=== PATIENT | female | born 1970 | race Asian ===

== ENCOUNTER 2019-06-15 11:50 | Emergency (ER) | payer BC, SELFPAY ==
[2019-06-15 11:58] VITALS: BMI 18.3
--- NOTE | 2019-06-15 12:08 | DI.RAD.S_ITS ---
PROCEDURE: XR SHOULDER RT MIN 2V INDICATIONS: pain TECHNIQUE: 3 views of the shoulder were acquired. COMPARISON: None. FINDINGS: Bones: No fractures or dislocations. No suspicious bony lesions. Visualized ribs appear intact. Mild degenerative changes of the right acromioclavicular joint. There is a small 0.3 cm calcific fragment adjacent the superior/proximal right humeral head. Soft tissues: No suspicious soft tissue calcifications. IMPRESSION: 1. Small 0.3 cm calcific fragment adjacent the superior/proximal right humeral head, which may represent findings of calcific tendinitis/the calcified sequela of rotator cuff injury in the appropriate clinical setting. 2. Mild degenerative changes of the right acromioclavicular joint. Dictated by: Leonid Bran M.D. on 06/15/2019 at 12:31 Approved by: Leonid Bran M.D. on 06/15/2019 at 12:34
[2019-06-15 13:17] VITALS: PULSE 70
--- NOTE | 2019-06-15 13:27 | ED_ITS ---
HPI - Extremity Injury (Upper) General Chief Complaint: Extremity Injury, Upper Stated Complaint: right shoulder pain, was told calcified tendonitis Time Seen by Provider: 06/15/19 12:20 Source: patient Mode of arrival: Ambulatory History of Present Illness HPI narrative: 48-year-old female nonsmoker with history of right shoulder pain and a prior diagnosis of calcific tendonitis presents with ongoing pain in her right shoulder in the absence of any new injury or findings. She does have ongoing pain and decreased range of motion secondary to pain. She denies any numbness, tingling or weakness. She denies any head or neck pain. She was seen at another facility in February and had imaging with a diagnosis calcific tendinitis. She was referred to Orthopedics whom give her some exercises but no specific therapies other than a steroid taper at been employed MD complaint: injury to: right and shoulder Onset (ago): month(s) Other injuries: none Handedness: right Place: home Relieving factors: rest Exacerbating factors: movement of extremity Associated symptoms: denies other symptoms Related Data Previous Rx's Medication Instructions Recorded ketorolac 10 mg PO Q6H PRN #14 tab 06/15/19 methylprednisolone [Medrol (Bijan)] See Rx Instructions .ROUTE 06/15/19 .COMPLEX #21 each Allergies Allergy/AdvReac Type Severity Reaction Status Date / Time No Known Drug Allergies Allergy Verified 06/15/19 11:58 Review of Systems Constitutional Constitutional: Denies chills, Denies fatigue, Denies fever(s), Denies frequent falls, Denies lethargy and Denies weakness Eyes Eyes: Denies change in vision, Denies eye discharge, Denies irritation and Denies loss of vision ENT Ears, Nose, Mouth, and Throat: Denies change in voice, Denies dizziness, Denies neck pain, Denies sore throat and Denies throat swelling Cardiovascular Cardiovascular: Denies chest pain, Denies irregular heart rhythm, Denies lightheadedness, Denies palpitations, Denies dyspnea, Denies dyspnea on exertion and Denies orthopnea Respiratory Respiratory: Denies cough, Denies dyspnea, Denies dyspnea on exertion and Denies wheezing Gastrointestinal Gastrointestinal: Denies abdominal pain, Denies change in bowel habits, Denies diarrhea, Denies nausea and Denies vomiting Genitourinary Genitourinary: Denies hematuria, Denies flank pain, Denies urinary incontinence and Denies urinary urgency Musculoskeletal Musculoskeletal: Denies back pain, Reports joint swelling, Reports limited range of motion, Denies muscle weakness, Denies neck pain, Denies numbness and Denies tingling Integumentary/Breasts Skin/Breast: Denies pruritus, Denies erythema, Denies rash and Denies wounds Neurologic Neurologic: Denies behavioral changes, Denies confusion, Denies dizziness, Denies frequent falls, Denies loss of vision, Denies numbness, Denies tingling and Denies weakness Psychiatric Psychiatric: Denies anxiety, Denies behavioral changes, Denies confusion, Denies depression, Denies homicidal ideation and Denies suicidal ideation Endocrine Endocrine: Denies fatigue, Denies flushing and Denies palpitations Hematologic/Lymphatic Hematologic/Lymphatic: Denies easy bruising Allergic/Immunologic Allergic/Immunologic: Denies urticaria, Denies throat swelling and Denies wheezing Exam Narrative Exam Narrative: GEN: AOx3 and in mild distress EYES: Pupils are equal, round, and reactive to light and accommodation. Extraoccular muscles are intact bilaterally. There is no subconjunctival hemorrhage or exudate. CHEST: Lungs are clear to auscultation bilaterally and free of wheezes, rales, or rhonchi. Heart rate is regular rhythm, there are no murmurs, clicks, rubs, or gallops. There is no chest wall tenderness. ABD: Abdomen is soft and nontender. There is no guarding or rebound. Bowel sounds are normal in all 4 quadrants. There is no mass or organomegaly. EXT:Decreased ROM secondary to pain in R shoulder. No numbness, tingling or weakness. SKIN: Warm, pink, and dry. No erythema or rash Initial Vital Signs Initial Vital Signs: Vital Signs Pulse Rate 70 06/15/19 13:17 Procedures Orthopedic Splinting/Casting Injury #1: Side: right Upper Extremity Injury Location: shoulder Upper Extremity Immobilizer: sling/shoulder immobilizer Post splinting neuro exam: intact Post splinting vascular exam: intact Placed by: Nursing Course Orders Ordered: ED Orders 06/15/19 12:08 XR shoulder RT min 2V Stat Vital Signs Vital signs: Vital Signs - 8 hr 06/15/19 13:17 06/15/19 14:18 Pulse Rate 70 Pulse Rate [Right Radial] 70 Respiratory Rate 14 Blood Pressure 122/78 Pulse Oximetry 98 MDM - Extremity Injury (Upper) Imaging Data Shoulder Xray: Radiologist's impression: [address] [address] XRay Report Signed Patient: Giovani Lewis#: [id number] : 1970Acct:[id number] Age/Sex: 48 / FDate of Service: 06/15/19 Loc: ED Accession Number: [id number] Procedure: XR shoulder RT min 2V Ordering Provider: Ever Castro D.O. PROCEDURE: XR SHOULDER RT MIN 2V INDICATIONS: pain TECHNIQUE: 3 views of the shoulder were acquired. COMPARISON: None. FINDINGS: Bones: No fractures or dislocations. No suspicious bony lesions. Visualized ribs appear intact. Mild degenerative changes of the right acromioclavicular joint. There is a small 0.3 cm calcific fragment adjacent the superior/proximal right humeral head. Soft tissues: No suspicious soft tissue calcifications. IMPRESSION: 1. Small 0.3 cm calcific fragment adjacent the superior/proximal right humeral head, which may represent findings of calcific tendinitis/the calcified sequela of rotator cuff injury in the appropriate clinical setting. 2. Mild degenerative changes of the right acromioclavicular joint. Dictated by: Leonid Bran M.D. on 06/15/2019 at 12:31 Approved by: Leonid Bran M.D. on 06/15/2019 at 12:34 Discharge Plan Departure Patient Disposition: Home Clinical Impression: Chronic shoulder pain Qualifiers: Laterality: right Qualified Code(s): M25.511 - Pain in right shoulder Discharge Date/Time: 06/15/19 14:20 Instructions: DI for Shoulder Pain Activity Restrictions/Additional Instructions: *You have been diagnosed with [acute on chronic shoulder pain ] *What to do: *Take medications as directed *Follow up with [facility], call for an appointment. Let them know you were seen in the Emergency Department and that we ask that you be seen in follow up *Return to ER if you should have any new, worsening or concerning symptoms Prescriptions: New ketorolac 10 mg tablet 10 mg PO Q6H PRN (Reason: pain) Qty: 14 RF: 0 methylprednisolone [Medrol (Bijan)] 4 mg tablets,dose pack See Rx Instructions .ROUTE .COMPLEX Qty: 21 RF: 0 Referrals: Jerald Geller MD [Physician] -
[2019-06-15 14:18] VITALS: BP 122/78; PULSE 70; RESP 14; O2SAT 98
== END 2019-06-15 14:20 | disposition home or self-care (01) ==
PROVIDERS: Emergency Provider Emergency Medicine
DX: M25.511 Pain in right shoulder (principal)
CPT/HCPCS: 73030; 99282; 99283